=== PATIENT | female | born 1970 | race Caucasian/White ===

== ENCOUNTER 2019-06-05 07:05 | Day surgery (SDC) | payer OTHER ==
[2019-06-05] MEDS ORDERED: Ringers Lactate 1,000 ML IV ONE ×2 (07:38→10:43)
[2019-06-05] MEDS ORDERED: SCOPOLAMINE HYDROBROMIDE PATCH TD ONE (07:38)
[2019-06-05 07:57] LABS: Specific Gravity 1.025 (1.005-1.030)
[2019-06-05] MEDS: CEFAZOLIN/SWI 2gm 2 GM/20 ML SYR ONE ×2 (08:19→09:45)
[2019-06-05] MEDS ORDERED: MIDAZOLAM HCL 2 MG/2 ML INJ ONE (09:00)
[2019-06-05] MEDS ORDERED: NA CHLORIDE 0.9% 1,000 ML ONE (09:21)
[2019-06-05] MEDS ORDERED: LIDOCAINE 2% MPF 5 ML VIAL ONE (09:28)
[2019-06-05] MEDS ORDERED: dexAMETHasone 10 MG/ML VIAL ONE (09:28)
[2019-06-05] MEDS ORDERED: ROCURONIUM 50 MG/5 ML VIAL IV ONE (09:28)
[2019-06-05] MEDS ORDERED: PROPOFOL 200 MG/20 ML VIAL IV ONE (09:28)
[2019-06-05] MEDS ORDERED: ONDANSETRON 4 MG/2 ML VIAL ONE (09:28)
[2019-06-05] MEDS ORDERED: FENTANYL CITR 250 MCG/5 ML ONE (09:28)
[2019-06-05] MEDS ORDERED: KETOROLAC 30 MG/ML INJ ONE (10:36)
[2019-06-05] MEDS: MORPHINE 4 MG/ML SYR ONE ×4 (11:30→11:58)
[2019-06-05] MEDS ORDERED: MEPERIDINE HCL 25 MG/0.5 ML ONE (11:41)
--- NOTE | 2019-06-06 09:20 | OP ---
Date of Procedure: 06/05/2019 Surgeon: Sofy Carney MD Equity Director: Melissa Mahmood. Postoperative Diagnosis: Heavy menstrual bleeding, desired sterilization. Postoperative Diagnoses: Menorrhagia (AUB-L/L) and desired sterilization, leiomyomata. Procedures Performed: 1.Diagnostic hysteroscopy, endometrial ablation with HTA. 2.Diagnostic laparoscopy, bilateral salpingectomy. Anesthesia: General endotracheal. Estimated Blood Loss: Minimal. Complications: None. Drains: None. Specimens: Bilateral tubes. Findings: Both tubes were mostly unremarkable. The left tube had some hydropic change and nodularit y to it. No other abnormal lesions in the pelvic cavity. No endometriosis was seen on the uterus. There were multiple leiomyomata, largest in the posterior wall, which was subserosal. However, overa ll size of the uterus not extremely large. Ovaries bilaterally normal. Endometrial ablation was conducted with slight loss of fluid, which was corrected. No cervical leak was noted. However, on the third after appropriate adjustments were made and the ablation cycle was at 6 minutes 50 seconds. The cycle had showed off and the water cold and the procedure co mpleted. At the ends of the procedure when examined, no vaginal browning were seen. Slight amount of fluid in th e pelvic cavity. However, no evidence of any trauma to the bowel was noted after carefully examining it. Description Of Procedure: After informed consent was verified, the patient was taken back to the OR. The patient is a 48-year-old woman with heavy bleeding. Endometrial sampling was negative for endo metrial atypia or malignancy. She is a heavyset lady without any control method in place. Her bleeding was heavy, perimenopausal, so in the absence of malignant or premalignant pathology she was counseled on the options of IUD Mirena or an ablation with tubal. The patient chose the second opti on. She was tired of her bleeding and could not wait for the bleeding to slowly get better. She wan victor manuel to proceed with ablation. After informed consent was obtained, then she was brought to the [facility]. Also discussed about the need for definitive control and the patient was having an ablati on with the risks of conception and rest of the baby were very high, so the patient consented for tub al ligation or bilateral salpingectomy. The patient is over the age of 40, according to the new guid elines and undergoing procedure permanent sterilization procedure like a tubal hysterectomy to have a bilateral salpingectomy, so consented her for that as well. After informed consent was verified, she was brought to the OR. Ancef 2 g were given. She was place d in supine fashion on the operating table. General anesthesia given. Placed in dorsal lithotomy po sition. Abdomen, vulva, vagina, and perineum were prepped and draped in a sterile fashion. Terry wa s placed to drain the bladder and attached to a drainage bag. Speculum placed to expose the cervix. Anterior lip grasped with single-tooth tenaculum. Cervix was dilated to 14-Jordanian and the HTA sheat h was primed under direct visualization and the Staley speculum in place. The cervical canal was trave rsed carefully into the uterine cavity. Once inside the cavity, both the tubal ostia were visualized . No intracavitary lesions were seen. There is small amount of tissue that was blocking the sheath of the HD as this was removed and replaced and once this was done, there was relatively good visualiz ation. No other problems. Cavity integrity test was done after it passed for a full 60 s econds. With only 4-5 mL of fluid loss, then the Ray-Tecs were packed into the vagina. The posterio r fornix with the speculum in place, the patient was placed in Trendelenburg position. The level of the patient was at the level of the HTA machine on the pull. Then, the procedure was started as a he ating cycle was conducted and the temperature reached 40 to 42 degrees Celsius. Then, the fluid loss increased to 10 mL and the machine shut off, so at this point, I removed the Ray-Tecs. They were co mpletely dry. Definitely no sign of perforation. So, after keeping the sheath in an optimal positio n and hooking the tenaculum to the clip on the sheath so that it will stay immobile. An Allis clamp was placed on the cervix at the level of the external os. Then, the machine was restarted. The Ray- Tecs packed the first posterior fornix and the patient at the level of the machine. The heating cycl e restarted without any problems and then attained 80 degrees Celsius. Then, ablation cycle was star victor manuel 6 minutes 50 seconds into this. There was a warning for another deficiency quickly as the nessa e shut down itself, then rechecked any retrograde leak of the sponges. The Ray-Tecs appeared to be p erfectly dry. So, I restarted the machine without moving the sheet. However, within a matter of few seconds, the fluid loss showed about the same level about 8-9 mL and so we started to try if it can squeeze the exit drainage tubing and once this was done, the machine completely shut off detecting a higher fluid leak to 10 mL. So, this was the third shot down. I allowed the cycle to be complete. Did not restart or take a new machine or a new device. I thought that the affect on the endometrium was descend 2/3 of the ablation was completed. After the 1.5 minutes cooling cycle, the sheath was r emoved after diagnostic hysteroscopy was performed. No evidence of any local trauma in the uterus af ter removing the Ray-Tecs. Close examination of the posterior vaginal wall and the fornix did not sh ow any evidence of browning. Then, a diagnostic VCare was introduced into the uterine cavity, fixed in place. Then, this area was draped. A 1 cm infraumbilical incision was made with a scalpel using the open laparoscopy technique. Fascia was incised, tagged with 0 Vicryl sutures. Peritoneum entered bluntly and S retractors were placed. Faiza introduced. Peritoneal cavity was insufflated optimally. Then, 5 mm suprapubic and left low er quadrant ports were placed under direct vision. The patient was placed in Trendelenburg. After e xamining the upper abdominal cavity, the lap band was in place. No other peritoneal abnormalities. Liver unremarkable. After placing the patient in T-Jt, able to visualize the uterus with multiple fibroids and nodulari ty of the left tube. Pelvic cavity was closely examined. All the peritoneum examined. No evidence of any endometriosis, so plan to remove the tubes. EnSeal device was opened and the tube from the le ft distal end was started to be taken down to the level of the coronal end. Then, on the opposite si de, started with the cornual end, came down towards the middle then from the distal end to meet in th e middle and the entire tube was removed. Both tubes were retrieved through the suprapubic trocar. Thorough irrigation and suction were performed. Excellent hemostasis was achieved. There was a fibr oid in the posterior wall as well on both sides with the largest one was in the posterior wall. The trocars were removed under direct vision. Gas was desufflated. Fascia at the umbilicus was closed w ith a 0 Vicryl in [id number] fashion and the tag sutures in place. Then, once the [id number] ht was placed with adequate margins on the fascial edge, then the other 2 sutures were removed. The tags were removed and then the [id number] was tied down. There was excellent closure. Subcu al l the subcuticular stitches were placed with interrupted 4-0 Vicryl. VCare and Terry were removed. The patient was recovered from anesthesia and taken to PACU in stable condition. EBL minimal. Instr ument, needle, and sponge counts were correct. She will follow up with me in 1 week and 3 months. MELISSA/DUSTIN Voice ID: [id number] Report ID: [id number]
== END 2019-06-05 13:43 | disposition home or self-care (01) ==
LOC: OR 07:05
PROVIDERS: ATTEND Obstetrics & Gynecology
PROC: 0UT74ZZ Resection of Bilateral Fallopian Tubes, Percutaneous Endoscopic Approach (ICD-10-PCS; 2019-06-05)
PROC: 0U5B8ZZ Destruction of Endometrium, Via Natural or Artificial Opening Endoscopic (ICD-10-PCS; principal; 2019-06-05 08:30)
DX: N92.0 Excessive and frequent menstruation with regular cycle (principal); Z30.2 Encounter for sterilization; I10 Essential (primary) hypertension; Z79.3 Long term (current) use of hormonal contraceptives; Z98.84 Bariatric surgery status; Z80.42 Family history of malignant neoplasm of prostate; Z80.1 Family history of malignant neoplasm of trachea, bronchus and lung; Z82.49 Family history of ischemic heart disease and other diseases of the circulatory system
CPT/HCPCS: 81025; 88302; J0690; J1100; J2175; J2250; J2405; J2704; J3010; J7030